=== PATIENT | female | born 1990 | race Caucasian/White ===

== ENCOUNTER 2024-05-29 16:18 | Emergency (ER) | payer OTHER ==
[~2024-05-29] VITALS: Ht 170.2 cm; Wt 83.9 kg
[2024-05-29] MEDS ORDERED: ACETAMINOPHEN ES 500 MG TABLET ONE (17:29)
[2024-05-29] MEDS: ACETAMINOPHEN 325 MG TABLET PO ONE (17:37)
[2024-05-29 19:49] LABS: PREGNANCY TEST URINE QUAL NEGATIVE (NEGATIVE)
[2024-05-29] MEDS ORDERED: METHOCARBAMOL (500MG) 500 MG TABLET ONE (20:12)
[2024-05-29] MEDS ORDERED: KETOROLAC TROMETHAMINE INJ 30 MG/ML VIAL ONE (20:12)
[2024-05-29] MEDS ORDERED: METH-649 PO (20:23)
[2024-05-29] MEDS: KETOROLAC TROMETHAMINE INJ 30 MG/ML VIAL IM ONE (20:27)
[2024-05-29] MEDS: METHOCARBAMOL (750MG) 750 MG TABLET PO ONE (20:27)
[2024-05-29 21:36] VITALS: BP 132/80; TEMP 98; O2SAT 97
== END 2024-05-29 21:37 | disposition home or self-care (01) ==
LOC: ER 16:39
DX: M54.2 Cervicalgia (principal); V43.02XA Car driver injured in collision with other type car in nontraffic accident, initial encounter; Y93.89 Activity, other specified; Y92.410 Unspecified street and highway as the place of occurrence of the external cause; Y99.8 Other external cause status
CPT/HCPCS: 99283; 96372; 84703; J1885